=== PATIENT | male | born 1995 ===

== ENCOUNTER 2021-05-30 20:12 | Emergency (ER) | payer BC, MEDICAID, SELFPAY ==
--- NOTE | ~2021-05-30 | XR_ITS ---
EXAMINATION: XR HAND, RIGHT CLINICAL INFORMATION: Right ring finger injury COMPARISON: None TECHNIQUE: PA, lateral, and oblique views of the right hand. FINDINGS: There is no fracture or dislocation. Alignment is anatomic. Joint spaces are maintained. The soft tissues are unremarkable. XR/XR hand RT min 3V IMPRESSION: Normal right hand.
[2021-05-30 20:23] VITALS: BP 133/80; PULSE 94; RESP 17; TEMP 36.6; O2SAT 99; BMI 22.3
--- NOTE | 2021-05-30 21:42 | ED.WOUNDLAC ---
HPI - Wound/Laceration General Chief Complaint: Wound/Laceration Stated Complaint: Finger injury Time Seen by Provider: 05/30/21 21:36 Source: patient Mode of arrival: ambulatory Limitations: no limitations History of Present Illness HPI narrative: Patient had laceration to dorsum surface of right ring finger while working on the car , no other injuries Related Data Previous Rx's Medication Instructions Recorded amoxicillin 875 mg-potassium 1 tab PO BID #20 tab 05/30/21 clavulanate 125 mg tablet (Augmentin) Allergies Allergy/AdvReac Type Severity Reaction Status Date / Time No Known Allergies Allergy Verified 05/30/21 20:23 Review of Systems Review of Systems: Yes all other systems are reviewed and are negative PMFSH Past Medical History Medical History No pertinent past medical history Social History Social History Advance Directives: No Advance Directives Information Provided: No Physical Exam Vital Signs: Vital Signs: Last Vital Signs Temp 97.9 F 05/30/21 20:23 Pulse 94 05/30/21 20:23 Resp 17 05/30/21 20:23 BP 133/80 05/30/21 20:23 Pulse Ox 99 05/30/21 20:23 Body Mass Index 22.3 Const: General: well developed Extrem: Hand/finger images: 1. Superficial 3 cm laceration on the dorsum of right ring finger, tendons intact Procedures Laceration Laceration 1: Site: hand (R 4th finger) Side (If applicable): right Size (cm): 3 Description: linear Depth: simple, single layer Local Anesthetic: lidocaine 2% Amount of anesthesia used (mL): 2 Skin layer closed with: nylon Size (cm): 5-0 Number of sutures: 7 Technique: simple, interrupted Discharge Plan Discharge Clinical Impression: Laceration Patient Disposition: Home, Self-Care Instructions: Finger Laceration (ED) Additional Instructions: Local care as advised Suture removal in 10 days Take antibiotics to avoid infection Prescriptions: New amoxicillin-pot clavulanate [Augmentin] 875-125 mg tablet 1 tab PO BID Qty: 20 RF: 0 Interventions: ED Discharge Assessment Last Done: 05/30/21 22:22 Discharge Date/Time: 05/30/21 22:26
[2021-05-30] MEDS: Lidocaine HCl 2 % MPF 5 ML VIAL INFILTRATI (21:44)
[2021-05-30] MEDS: Amoxicillin/Potassium Clav 875 MG TABLET PO (22:13)
== END 2021-05-30 22:26 | disposition home or self-care (01) ==
PROVIDERS: Emergency Provider Internal Medicine
DX: S61.214A Laceration without foreign body of right ring finger without damage to nail, initial encounter (principal); M79.644 Pain in right finger(s); Y28.9XXA Contact with unspecified sharp object, undetermined intent, initial encounter; Y93.9 Activity, unspecified; Y92.9 Unspecified place or not applicable; Y99.9 Unspecified external cause status; Z79.899 Other long term (current) drug therapy
CPT/HCPCS: 12002; 73130; 99284